=== PATIENT | male | born 1950 | race Caucasian/White ===

== ENCOUNTER → 2017-02-13 | Outpatient (CLI) | payer MEDICARE, BC ==
--- NOTE | 2017-02-13 21:02 | PN ---
DATE OF SERVICE: 02/13/2017 A 66-year-old gentleman who has been followed in the sleep center for treatment of obstructive sleep apnea/hypopnea syndrome. Patient continued to use his treatment with CPAP every night for the whole night. I checked his CPAP unit. Patient using it 30 out of 30 nights for more than 4 hours. Average usage is 8.2 hours. CPAP pressure is 10 cm of water. No snoring with the machine. [place] Sleepiness Scale is 8. MEDICATIONS: 1. Metoprolol. 2. Losartan. 3. Nifedipine and 4. Simvastatin. PHYSICAL EXAMINATION: GENERAL: A pleasant patient in no distress. VITAL SIGNS: BP 127/80, HR 74, RR 16. Height 5 feet 7 inches. Weight 204. BMI 31.9. Neck 16-3/4. Oxygen saturation at room air 95%. HEENT: PERRLA, EOMI. Evaluation of oropharynx showed tongue protrudes midline, extremely low position of soft palate. NECK: Supple. No JVD. Thyroid is not palpable. LUNGS: Clear to percussion and to auscultation. Good air exchange. No wheezing or rhonchi. HEART: S1, S2 regular. No murmurs, gallops, or rubs. ABDOMEN: Obese, soft and nontender. Bowel sounds are present. No organomegaly appreciated. EXTREMITIES: No clubbing or cyanosis. TAIL PULLER: Awake, alert, and oriented x3. Cranial nerves 2 to 7 intact. There is no fasciculation or atrophy noted. No focal deficits observed. IMPRESSION: 1. Obstructive sleep apnea-hypopnea syndrome. Patient demonstrated 100% compliance with treatment with a pressure at 10 cm of water. No snoring. No sleepiness. Benefitting from treatment. 2. Mild obesity; body mass index of 31.9. 3. Hypertension. 4. Hyperlipidemia. 5. Obesity. 6. Status post right knee surgery. PLAN: 1. Patient will continue to use his CPAP equipment every night for the whole night. 2. Losing weight. 3. Sleep hygiene with regular time in bed for at least 8 hours. 4. No driving if feeling any sleepiness. 5. Prescription for all necessary CPAP supplies, including mask, tube, filters with changing of supplies on a regular basis. Thank you very much for allowing me to participate in the management of your patient. Sincerely, Jayy Membreno MD, PhD, FAASM. Diplomat of [place] [employer], Sleep Medicine Board by [place] [place] Negative Assembler of [facility] [place]
== END | disposition home or self-care (01) ==
LOC: SLEEP 13:26
PROVIDERS: ATTEND Internal Medicine
DX: G47.33 Obstructive sleep apnea (adult) (pediatric) (principal); E66.9 Obesity, unspecified; Z68.31 Body mass index [BMI] 31.0-31.9, adult; I10 Essential (primary) hypertension; E78.5 Hyperlipidemia, unspecified; Z79.899 Other long term (current) drug therapy

== ENCOUNTER → 2018-04-16 | Outpatient (CLI) | payer MEDICARE ==
--- NOTE | 2018-04-16 11:58 | PN ---
PROGRESS NOTE DATE OF SERVICE: 04/16/2018 A 67-year-old gentleman who has been followed in the Sleep Center for treatment of obstructive sleep apnea-hypopnea syndrome. Patient continued to use his CPAP equipment every night without any significant problems. No snoring with the machine. [place] Sleepiness Scale is 5. I checked his CPAP unit. Usage is 30/30 nights for more than 4 hours. Average usage 8.4 hours. CPAP pressure is 10 cm of water. MEDICATIONS: Metoprolol, losartan, nifedipine, simvastatin. PHYSICAL EXAM: Patient in no distress. BP 147/83, HR 72, RR 16, height 5, 7, weight 208.4, BMI 32.5. Patient increased his weight on 4 pounds compared with the previous visit, temperature 97.2, oxygen saturation at room air 93%. OROPHARYNX: Extremely low position of soft palate. HEART: S1, S2. Regular. Systolic murmur. Neck Supple, no JVD. Thyroid is not palpable. LUNGS Clear to percussion and to auscultation. Good air exchange. No wheezing or rhonchi. ABDOMEN Soft and nontender. Bowel sounds are present. No organomegaly appreciated. EXTREMITIES No clubbing or cyanosis. SPANISH PROFESSOR Awake, alert, and oriented X3. Cranial nerves 2 to 7 intact. There is no fasciculation or atrophy. noted. No focal deficits observed. IMPRESSION: 1. Obstructive sleep apnea-hypopnea syndrome. Patient is using his CPAP equipment every night for the whole night, 100% compliance with treatment, benefitting from treatment. 2. Mild obesity. 3. Hypertension. 4. Hyperlipidemia. 5. Status post right knee surgery. PLAN: 1. Patient will continue to use CPAP equipment every night. 2. Prescription for all necessary CPAP supplies including mask, tube, filters. 3. Losing weight. 4. Sleep hygiene with regular time in bed for at least 8 hours. 5. No driving if any sleepiness. 6. Followup visit in 1 year or earlier if patient has any problems. Thank you very much for allowing me to participate in the management of your patient. Sincerely, Jayy Membreno MD, PhD, FAASM Diplomat of [place] [employer] [place] [employer] Rubber Trimmer of [facility] [place] MMODL / IJN: [id number] /
== END | disposition home or self-care (01) ==
LOC: SLEEP 10:27
PROVIDERS: ATTEND Internal Medicine
DX: G47.33 Obstructive sleep apnea (adult) (pediatric) (principal); I10 Essential (primary) hypertension; E78.5 Hyperlipidemia, unspecified; E66.9 Obesity, unspecified; Z68.32 Body mass index [BMI] 32.0-32.9, adult; Z99.89 Dependence on other enabling machines and devices; Z98.890 Other specified postprocedural states; Z79.899 Other long term (current) drug therapy

== ENCOUNTER → 2020-09-04 | Outpatient (CLI) | payer MEDICARE ==
[2020-09-04 11:37] LABS: ALT 29 U/L (4-49); AST 26 U/L (17-59); African American GFR (CKD) >90 (>60 ml/min/1.73 sqM); Albumin 4.5 g/dL (3.5-5.0); Alkaline Phosphatase 75 U/L (38-126); Anion Gap 6 mmol/L; Blood Urea Nitrogen 16 mg/dL (9-20); Calcium 9.5 mg/dL (8.4-10.2); Carbon Dioxide 31 mmol/L (22-30); Chloride 103 mmol/L (98-107); Cholesterol 128 mg/dL (<200); Glucose 97 mg/dL (74-99); HDL Cholesterol 54 mg/dL (40-60); LDL Cholesterol,Calculated 52 mg/dL (0-99); Non-African American GFR(CKD) >90 (>60 ml/min/1.73 sqM); Potassium 4.6 mmol/L (3.5-5.1); Sodium 140 mmol/L (137-145); Total Bilirubin 0.7 mg/dL (0.2-1.3); Total Protein 7.4 g/dL (6.3-8.2); Triglycerides 109 mg/dL (<150)
--- NOTE | 2020-09-04 13:53 | CT ---
EXAMINATION TYPE: CT angio chest DATE OF EXAM: 09/04/2020 COMPARISON: Radiograph 10/08/2018 HISTORY: 70-year-old male I71.2, Follow up thoracic aortic aneurysm TECHNIQUE: Contiguous axial scanning of the chest performed with IV Contrast, patient injected with 1 00 mL of Isovue 370. Coronal/sagittal MIP reconstructions performed. 3-D reconstructions generated on a dedicated independent workstation. CT DLP: 506.9 mGycm Automated exposure control for dose reduction was used. FINDINGS: Heart normal size without pericardial effusion. Mitral annular calcifications are noted. Aortic root aneurysmal at 4.1 cm. Ascending aorta aneurysmal at 4.5 cm. Mild atherosclerotic arch calcifications with conventional arch vessel branching anatomy. Upper descending thoracic aorta measures 2.9 cm. Mid descending thoracic aorta measures 2.9 cm. Ectatic aorta at the thoracoabdominal junction at 2.7 cm. No thoracic lymphadenopathy by CT size criteria. Trace bilateral gynecomastia. Some strandy atelectasis in the lower lungs. No consolidation or pleural effusion. Scattered hepatic hypodensities, largest measuring 3.7 cm, probable cysts. Additional cysts within both kidneys. Indeterminate lesion posterior midpole right kidney measuring 1 .9 cm has intermediate attenuation. Additional indeterminate lesion anterior upper pole left kidney m easures 3.4 cm. Solid mass or hemorrhagic cyst are both considerations. 2.9 cm nodule left adrenal gland. Bones: No osseous destructive process. Degenerative changes visualized cervical spine. IMPRESSION: 1. ANEURYSMAL AORTIC ROOT (4.1 CM) AND ASCENDING AORTA (4.5 CM). 2. BILATERAL RENAL LESIONS, LIKELY CYSTS. A 1.9 CM CORTICAL LESION ON THE RIGHT AND A 3.4 CM CORTICAL LESION ON THE LEFT ARE INDETERMINATE BETWEEN HEMORRHAGIC/PROTEINACEOUS CYSTS OR SOLID MASSES. 3-6 MO NTH FOLLOW-UP CONTRAST ENHANCED KIDNEY CT RECOMMENDED TO REASSESS. 3. A 2.9 CM LEFT ADRENAL NODULE, STATISTICALLY REPRESENTS A BENIGN ADRENAL ADENOMA SHOULD ALSO BE MAGUI SSESSED AT THAT TIME.
== END | disposition home or self-care (01) ==
LOC: RADCTMAIN 10:27
PROVIDERS: ATTEND Internal Medicine Interventional Cardiology
DX: I71.2 Thoracic aortic aneurysm, without rupture (principal); Q25.43 Congenital aneurysm of aorta; N28.9 Disorder of kidney and ureter, unspecified; D35.02 Benign neoplasm of left adrenal gland; E78.2 Mixed hyperlipidemia
CPT/HCPCS: 80061; 80053; 71275; 36415; Q9967

== ENCOUNTER → 2021-04-02 | Outpatient (CLI) | payer MEDICARE ==
[2021-04-02 15:57] LABS: Chol/HDL Ratio 2.56; LDL Cholesterol,Calculated 55.4 mg/dL (0.0-131.0); VLDL Calculation 19.6 mg/dL (5.00-40.00)
== END | disposition home or self-care (01) ==
LOC: LABWHC1 10:31
PROVIDERS: ATTEND Nurse Practitioner Adult Health
DX: E78.5 Hyperlipidemia, unspecified (principal)
CPT/HCPCS: 36415; 80061; 84450; 84460

== ENCOUNTER → 2021-08-27 | Outpatient (CLI) | payer MEDICARE | END | disposition home or self-care (01) | LOC: LABPAT 08:41 | PROVIDERS: ATTEND Orthopaedic Surgery | DX: M17.12 Unilateral primary osteoarthritis, left knee (principal); Z22.322 Carrier or suspected carrier of Methicillin resistant Staphylococcus aureus | CPT/HCPCS: 87070 ==

== ENCOUNTER → 2021-08-27 | Outpatient (CLI) | payer MEDICARE ==
[2021-08-27 17:59] LABS: ALT 28 U/L (10-49); AST 26 U/L (14-35); African American GFR (CKD) 102.3 (60.0-200.0); Albumin 4.4 g/dL (3.8-4.9); Albumin/Globulin Ratio 1.82 (1.60-3.17); Alkaline Phosphatase 81 U/L (41-126); BUN/Creat Ratio 17.41 Ratio (12.00-20.00); Blood Urea Nitrogen 14.8 mg/dL (9.0-27.0); Calcium 9.4 mg/dL (8.7-10.3); Carbon Dioxide 22.9 mmol/L (20.0-27.5); Chloride 104 mmol/L (96-109); Chol/HDL Ratio 2.55 Ratio; Globulin 2.4 g/dL (1.6-3.3); Glucose 107 mg/dL (70-110); LDL Cholesterol,Calculated 60.9 mg/dL (0.0-131.0); Non-African American GFR(CKD) 88.3 (60.0-200.0); Potassium 4.2 mmol/L (3.5-5.5); Sodium 141 mmol/L (135-145); Total Protein 6.8 g/dL (6.2-8.2)
== END | disposition home or self-care (01) ==
LOC: LABWHC1 08:45
PROVIDERS: ATTEND Internal Medicine Interventional Cardiology
DX: E78.2 Mixed hyperlipidemia (principal)
CPT/HCPCS: 36415; 80053; 80061

== ENCOUNTER 2021-10-01 10:14 | Day surgery (SDC) | payer MEDICARE ==
[2021-09-21 16:12] VITALS: BMI 32.8
--- NOTE | 2021-09-30 13:31 | HP ---
HISTORY AND PHYSICAL REASON FOR ADMISSION: Surgery 10/01/2021 HISTORY OF PRESENT ILLNESS: Julius Oseguera is a 71-year-old patient seen with symptomatic left knee osteoarthritis. We discussed options for treatment. He elected to proceed with left total knee arthroplasty. Consent was obtained. PAST MEDICAL HISTORY: Hypertension, hyperlipidemia. PAST SURGICAL HISTORY: Right total knee arthroplasty, tonsillectomy, right knee arthroscopy, no surgery. MEDICATIONS: Hyzaar, Procardia, simvastatin, Toprol, Tylenol. ALLERGIES: None. SOCIAL HISTORY: Denies tobacco use. PHYSICAL EVALUATION OF THE LEFT KNEE: Range of motion is -1/2 to 125. Tenderness medial joint line. Crepitus medial patellofemoral compartment with range of motion. Pain with patellofemoral compression. Ligaments stable. Hip rotation without pain. Distal neurovascular exam is intact. RADIOGRAPHS: Left knee radiographs reveal severe osteoarthritic changes. IMPRESSION: 1. Left knee osteoarthritis. 2. Hypertension. 3. Hyperlipidemia. PLAN: Left total knee arthroplasty. Surgery 10/01/2021. MMODL / IJN: [id number] /
[~2021-10-01 10:14] MED LIST: ACETAMINOPHEN TAB 500 MG TAB PO PRN; DEXAMETHASONE SOD PHOSPHATE 4 MG/ML 1 ML VIAL IV ONE; HYDROmorphone 0.5 MG/0.5 ML SYRINGE IVP PRN; MELOXICAM 7.5 MG TAB PO PRN; MIDAZOLAM 2 MG/2 ML VIAL IV PRN; ONDANSETRON 4 MG/2 ML VIAL IVP ONE; TRANEXAMIC ACID 1,000 MG in SODIUM CHLORIDE 0.9% 100 ML IVPB PRN
[2021-10-01] MEDS: LACTATED RINGERS 1,000 ML IV SCH (11:25)
[2021-10-01] MEDS ORDERED: ONDANSETRON 4 MG/2 ML VIAL IVP ONE (11:29)
[2021-10-01] MEDS ORDERED: DEXAMETHASONE SOD PHOSPHATE 4 MG/ML 1 ML VIAL IVP ONE (11:29)
[2021-10-01] MEDS ORDERED: MIDAZOLAM 2 MG/2 ML VIAL IVP ONE (11:59)
[2021-10-01] MEDS ORDERED: fentaNYL (PF) 50 MCG/ML 2 ML AMP IVP ONE (11:59)
[2021-10-01] MEDS ORDERED: SODIUM CHLORIDE 0.9% (PF) 10 ML VIAL ONE (12:38)
[2021-10-01] MEDS ORDERED: fentaNYL (PF) 50 MCG/ML 2 ML AMP ONE (12:38)
[2021-10-01] MEDS ORDERED: HYDROmorphone (PF) 1 MG/ML ONE (12:38)
[2021-10-01] MEDS ORDERED: PROPOFOL 10 MG/ML 20 ML VIAL IV ONE (12:38)
[2021-10-01] MEDS ORDERED: MIDAZOLAM 2 MG/2 ML VIAL ONE ×2 (12:38)
[2021-10-01] MEDS ORDERED: ROPIVACAINE 5 MG/ML 30 ML VIAL ONE (12:38)
[2021-10-01] MEDS ORDERED: SODIUM CHLORIDE 0.9% 100 ML BAG ONE (12:38)
[2021-10-01] MEDS ORDERED: TRANEXAMIC ACID 1,000 MG/10 ML VIAL ONE (12:38)
[2021-10-01] MEDS ORDERED: ceFAZolin 1,000 MG in SODIUM CHLORIDE 0.9% 1,000 ML IRRIGATION ONE (13:00)
[2021-10-01] MEDS ORDERED: LACTATED RINGERS 1,000 ML IV ONE ×3 (13:09→16:23)
--- NOTE | 2021-10-01 14:00 | P.ANPRN ---
Procedure Note - Anesthesia - Nerve Block Performed Left Adductor Canal Infusion Time Out Performed: Yes (1158) Date of Procedure: 10/01/21 Procedure Start Time: 11:59 Procedure Stop Time: 12:06 Location of Patient: PreOp Indication: Acute Post-Operative Pain, Requested by Surgeon Specifically requested for management of pain by DrSusana: Philipp Alvarez Sedation Type: Sedate with meaningful contact maintained Preparation: Sterile Prep Position: Supine Catheter Depth at Skin (cm): 7 Catheter: Indwelling Needle Types: Pajunk Needle Gauge: 18 Ultrasound used to visualize needle placement: Yes Ultrasound used to observe medication spread: Yes Injectate: 0.5% Ropivacaine (see comment for volume) (15cc + 10cc nacl pf) Blood Aspirated: No Pain Paresthesia on Injection Noted: No Resistance on Injection: Normal Image Stored and Saved: Yes Events: Uneventful and Well Tolerated
--- NOTE | 2021-10-01 14:01 | P.ANPRN ---
Procedure Note - Anesthesia - Nerve Block Performed Left iPack Single Time Out Performed: Yes (1158) Date of Procedure: 10/01/21 Procedure Start Time: 12:07 Procedure Stop Time: 12:11 Location of Patient: PreOp Indication: Acute Post-Operative Pain, Requested by Surgeon Specifically requested for management of pain by DrSusana: Philipp Alvarez Sedation Type: Sedate with meaningful contact maintained Preparation: Sterile Prep Position: Supine Catheter: None Needle Types: Pajunk Needle Gauge: 21 Ultrasound used to visualize needle placement: Yes Ultrasound used to observe medication spread: Yes Injectate: 0.5% Ropivacaine (see comment for volume) (15cc + 10cc nacl pf) Blood Aspirated: No Pain Paresthesia on Injection Noted: No Resistance on Injection: Normal Image Stored and Saved: Yes Events: Uneventful and Well Tolerated
[2021-10-01] MEDS ORDERED: HYDROmorphone 0.2 MG/1 ML SYRINGE IVP PRN (14:29)
[2021-10-01] MEDS ORDERED: HYDROcodone/APAP 5-325MG 1 EACH TAB PO PRN (14:29)
[2021-10-01] MEDS ORDERED: ONDANSETRON 4 MG/2 ML VIAL IVP PRN (14:29)
[2021-10-01] MEDS ORDERED: NALOXONE 0.4 MG/ML 1 ML VIAL IV PRN (14:29)
[2021-10-01] MEDS ORDERED: HYDROmorphone 0.5 MG/0.5 ML SYRINGE IVP PRN ×2 (14:29)
--- NOTE | 2021-10-01 14:29 | P.OP ---
Date of Procedure: 10/01/21 Preoperative Diagnosis: Left knee osteoarthritis Postoperative Diagnosis: Left knee osteoarthritis Procedure(s) Performed: Left total knee arthroplasty Implants: 1. Depuy attune size 7 left cruciate retaining cemented femur 2. Depuy attune size 7 fixed bearing cemented tibial baseplate 3. Depuy attune size 7 fixed bearing 7 mm polyethylene tibial insert 4. Depuy attune 38 mm all polyethylene cemented patella Anesthesia: regional (Adductor canal catheter, Ipack block), spinal Surgeon: Philipp Alvarez Instructional Support Specialist #1: Jake Marcelo Estimated Blood Loss (ml): 50 Pathology: other (Bone) Condition: stable Disposition: PACU Indications for Procedure: 71-year-old patient seen with symptomatic left knee osteoarthritis. After having treatment options discussed, he elected to proceed with total knee arthroplasty. Operative Findings: See description of procedure Description of Procedure: Patient was taken to the operative suite after having an adductor canal catheter placed by the department of anesthesia. Patient underwent a spinal anesthetic by the department of anesthesia. Patient was given preoperative IV intake antibiotics and TXA. A well-padded tourniquet was placed about the left lower extremity. The lower extremity was then prepped and draped in the normal sterile orthopedic fashion. The extremity was elevated, a tourniquet was insufflated to 300. A standard anterior incision was made sharply through skin. Dissection was taken down through the subcutaneous soft tissues down to the extensor mechanism. A medial arthrotomy was performed, patella was everted and knee was flexed. There was advanced osteoarthritis noted. I introduced my distal intramedullary femoral drill. I then introduced the distal femoral cutting jig. Zackary ENGEL secured the cutting jig with 2 pins. I held retractors in position while Zackary ENGEL performed the distal femoral resection through the guide area we now removed her distal femoral cutting guide. We now placed our 4-in-1 femoral cutting block and positioned and it was secured with 2 pins by Zackary ENGEL while I held the block in position. The distal femoral finishing was now completed. A proximal tibial cutting guide was positioned. I held the guide in the appropriate position with both hands well Zackary ENGEL inserted stabilizing pins into the guide. Proximal tibial cut was made. We now placed a trial femoral component into position, along with an appropriate size tibial tray and insert. We now took the knee through range of motion and had full extension good flexion and good overall soft tissue balance noted. The patella was everted and stabilized with 2 towel clips held by Zackary ENGEL while I performed a flush with patellar quad tendon utilizing a fresh sawblade. We templated the patella, appropriate drill holes were made. An appropriate trial patella was positioned, knee was taken through full range of motion with the patella tracking very nicely. The trial patella was removed. Drill holes were made through the femoral component. All trial components were removed after marking off the appropriate rotation of the tibia. Retractors were now positioned along the proximal tibia. An appropriate keel punch was made with the appropriate size tibial guide by myself on Zackary ENGEL assisted by holding retractors. At this point appropriate size implants were chosen and opened. The joint was irrigated copiously with pulse lavage mechanical irrigation. The posterior capsule was infiltrated with local analgesic. The wound was irrigated with pulse lavage mechanical irrigation. We mixed antibiotic methylmethacrylate. We placed the knee into flexion. We placed multiple retractors assisted by Zackary ENGEL to expose the proximal tibia. Once the methyl methacrylate was ready, the tibial component was cemented into place removing any excess methylmethacrylate form by both myself and Zackary ENGEL. The femoral component was cemented into place removing the removing any excess methylmethacrylate performed by both myself and Zackary ENGEL. We then inserted the appropriate size polyethylene tibial insert. We made sure that it was locked into position. We took the knee into full extension, and then back in a flexion making sure we had removed any excess methylmethacrylate. The patellar component was then cemented down and secured with clamp. Excess methylmethacrylate removed. We kept the knee in full extension, patellar clamp in position until methylmethacrylate had hardened. Once it had hardened the patellar clamp was removed. The knee was taken through full range of motion. The patella tracked nicely. There was good soft tissue balancing. The tourniquet was now released. Additional hemostasis was achieved via angelo ctrocautery. A second gram of TXA was given. The wound again was irrigated with pulse lavage mechanical irrigation. The superficial soft tissues were infiltrated local analgesic. The extensor mechanism was repaired with Ethibond. We checked the repair with range of motion and it was stable. The subcutaneous soft tissues were repaired with Vicryl in layers. The skin was approximated with pernio/Dermabond. Sterile dressings were applied followed by loose web roll and Héctor bandage. The patient was transferred to a bed, and taken to recovery in stable and satisfactory condition. Zackary ENGEL assisted with this complex procedure.
[2021-10-01] MEDS ORDERED: ROPIVACAINE 0.2%-NS ON-Q PUMP 2 MG/ML EACH MISCELLANE ONE (15:17)
--- NOTE | 2021-10-01 15:31 | XR ---
Left knee HISTORY: Status post left knee arthroplasty 2 views the left knee Patient is status post left knee arthroplasty. There is anatomic alignment. Soft tissue calcification may be vascular. Lucencies present within the soft tissues. IMPRESSION: Orthopedic follow-up.
[2021-10-01] MEDS ORDERED: SENNOSIDES-DOCUSATE SODIUM 1 EACH TAB PO SCH (21:00)
[2021-10-01] MEDS ORDERED: ATORVASTATIN 10 MG TAB PO SCH (21:45)
[2021-10-01] MEDS ORDERED: clonazePAM 0.5 MG TAB PO SCH (21:45)
[2021-10-01] MEDS: HYDROcodone/APAP 7.5-325MG 1 EACH TAB PO PRN (23:53)
[2021-10-02] MEDS: LACTATED RINGERS 1,000 ML IV SCH ×4 (02:27→11:12)
[2021-10-02 03:45] VITALS: RESP 18
[2021-10-02] MEDS: HYDROcodone/APAP 7.5-325MG 1 EACH TAB PO PRN ×2 (05:34→13:12)
--- NOTE | 2021-10-02 07:24 | P.PN ---
Progress Note - Text Progress Note Date: 10/02/21 (619) Anesthesiology Postop day 1 status post total knee arthroplasty with adductor canal catheter. Patient doing well. VAS 4 out of 10. Gross strength intact in lower extremity. Eyes fever. Denies alterations in sensorium. Catheter site intact. Heart regular rate Lungs nonlabored Abdomen nondistended Assessment: Postop day 1 status post total knee arthroplasty with adductor canal catheter Plan: All questions answered. Maintain catheter 2 more days with patient removal at home. Instructions were given at discharge.This note was dictated using [employer] software. Please be advised there is a potential for misspellings or errors in financial service rep.
[2021-10-02 07:49] VITALS: BP 153/78; PULSE 90; TEMP 98.8
[2021-10-02 09:00] LABS: Basophils # (A) 0.03 X 10*3/uL (0.00-0.10); Basophils % (A) 0.2 %; Eosinophils # (A) 0 X 10*3/uL (0.04-0.35); Eosinophils % (A) 0 %; HCT 42.2 % (39.6-50.0); HGB 13.4 g/dL (13.0-17.0); Lymphocytes # (A) 0.83 X 10*3/uL (0.90-5.00); Lymphocytes % (A) 6.9 %; MCH 28.5 pg (27.0-32.0); MCHC 31.8 g/dL (32.0-37.0); MCV 89.6 fL (80.0-97.0); Mean Platelet Volume 12.2 fL (9.5-12.2); Monocytes # (A) 1.25 X 10*3/uL (0.20-1.00); Monocytes % (A) 10.3 %; Neutrophils # (A) 9.91 X 10*3/uL (1.80-7.70); Platelet Count 168 X 10*3/uL (140-440); RBC 4.71 X 10*6/uL (4.40-5.60); RDW 12.7 % (11.5-14.5); WBC 12.09 X 10*3/uL (4.50-10.00)
[2021-10-02] MEDS ORDERED: ENOXAPARIN 30 MG/0.3 ML SYRINGE SQ SCH (09:00)
[2021-10-02] MEDS ORDERED: ASPIRIN 81 MG PO SCH (09:00)
[2021-10-02] MEDS ORDERED: CHOLECALCIFEROL 25 MCG (1000 IU) TABLET PO SCH (09:00)
[2021-10-02] MEDS ORDERED: METOPROLOL SUCCINATE (ER) 100 MG TAB.ER.24H PO SCH (09:00)
[2021-10-02] MEDS ORDERED: SPIRONOLACTONE 25 MG TAB PO SCH (09:00)
[2021-10-02] MEDS ORDERED: LOSARTAN-HCTZ 50-12.5 MG 1 EACH TAB PO SCH (09:00)
--- NOTE | 2021-10-02 11:49 | P.PN ---
Subjective Progress Note Date: 10/02/21 Principal diagnosis: Status post left total knee arthroplasty Patient evaluated today at bedside, he is resting in his hospital bed. Patient did very well with physical therapy. His pain is well-controlled with current medication. Currently denying any headaches, lightheadedness, chest pain or shortness of breath. Objective - Vital Signs Vital signs: Vital Signs Temp 98.8 F 10/02/21 07:48 Pulse 90 10/02/21 07:48 Resp 18 10/02/21 08:00 BP 153/78 10/02/21 07:48 Pulse Ox 97 10/02/21 07:48 Intake & Output 10/01/21 10/02/21 10/02/21 18:59 06:59 18:59 Intake Total 2100 Output Total 50 Balance 2050 Weight 98.7 kg Intake: IV 2100 Output: Estimated Blood Loss 50 Other: Voiding Method Toilet Toilet Urinal Urinal # Voids 2 - Exam Left lower extremity: Incision is clean, dry, and intact. The foam dressing is in good condition. There is minimal soft tissue swelling and ecchymosis surrounding the medial and lateral aspects of the incision. Calf is soft, no tenderness with palpation. Plantar flexion, dorsiflexion, EHL, FHL are intact. Sensory exam to light touch throughout the extremity is intact, dorsal pedis pulses 2+. - Labs CBC & Chem 7: 10/02/21 05:24 Labs: Abnormal Lab Results - Last 24 Hours (Table) 10/02/21 Range/Units 05:24 WBC 12.09 H (4.50-10.00) X 10*3/uL MCHC 31.8 L (32.0-37.0) g/dL Immature Gran # 0.07 H (0.00-0.04) X 10*3/uL Neutrophils # 9.91 H (1.80-7.70) X 10*3/uL Lymphocytes # 0.83 L (0.90-5.00) X 10*3/uL Monocytes # 1.25 H (0.20-1.00) X 10*3/uL Eosinophils # 0 L (0.04-0.35) X 10*3/uL Assessment and Plan Assessment: Postoperative day #1 status post left total knee arthroplasty Plan: Pain control, plan for discharge home on oral medication DVT prophylaxis, aspirin 81 mg twice a day Wound care instructions were discussed, this including icing and elevating along with removal of the pain catheter when empty Medical recommendations Home physical therapy and nursing of discharge Plan for discharge home today Time with Patient: Less than 30
--- NOTE | 2021-10-02 11:53 | P.DS ---
Providers Date of admission: 10/01/2021 Expected date of discharge: 10/02/21 Attending physician: Philipp Alvarez Consults: 10/01/21 14:29 Consult Physician Routine Consulting Provider: Jesus Lynch Reason/Comments: Medical management Do you want consulting provider notified?: Yes Primary care physician: [facility] Hospital Course: Date of admission: 10/01/2021 Date of discharge: 10/02/2021 Admission diagnosis: Status post left total knee arthroplasty Discharge diagnosis: Same Attending physician: Dr. Alvarez Surgical procedures: Left total knee arthroplasty Brief history: Patient is a 71-year-old male with a history of progressive primary left knee osteoarthritis. At this point patient has failed conservative treatment measures and has opted to proceed with a elective left total knee arthroplasty. Hospital course: Details of patient's surgery can be found in operative report. Patient tolerated the procedure well and was subsequently transported to orthopedic floor. Patient's orthopeidc and medical care was provided daily. Patient had daily laboratory tests performed for evaluation of overall blood counts. Patient had daily physical therapy to include strengthening range of motion as well as education with walker ambulation. Patient was treated with Lovenox for their postoperative DVT prophylaxis during their inpatient stay. Patient was noted to have a relatively uneventful postoperative course. Patient reported satisfactory pain control with oral pain medications by postoperative day 0. Patient showed satisfactory progress with physical therapy. Patient moved steadily through the program and had no difficulty meeting the goals by postoperative day 1. Given patient's otherwise satisfactory course and having met physical therapy goals, plan is to discharge patient home on postoperative day 1. Discharge condition/disposition: Patient will be discharged home in stable condition. Discharge medications: Instructions are given on resumption of patient's normal daily medications per primary care recommendation, in addition patient will be prescribed [place] 7.5 mg/325 mg, Colace 100 mg. Discharge instructions: 1. Wound care and infection precautions, keep incision dry and covered while showering, no lotions, creams, moisturizers. No soaking, tubs, pools, hottubs. Do not scrub over the incision. 2. Weight-bear as tolerated with walker / cane until follow-up. 3. Ice and elevate when necessary. Do not exceed 20 minutes per hour with ice pack. 4. Utilize compression sleeve until seen at first follow up appointment. 5. Visiting nursing care. 6. Home physical therapy including home CPM. 7. Pain meds and anticoagulants per prescription. 8. Pain medication has potential to cause constipation. Increase oral fluid and fiber intake. Contact primary care provider if you have not had a bowel movement within 48 hours after discharge 9. No anti-inflammatory medication until discussed at first post operative visit, this including Motrin, Aleve, Mobic, Diclofenac. 10. Follow up in office at 2 weeks postop with Zackary Marcelo PA-C/Kong Stewart 11. Follow up with your primary care doctor 7-10 days after discharge. 12. Contact [facility] with any questions, . Procedures: Left total knee arthroplasty Patient Condition at Discharge: Good Plan - Discharge Summary Discharge Rx Participant: No New Discharge Prescriptions: New Aspirin [Adult Low Dose Aspirin EC] 81 mg PO BID #60 tab Docusate [Colace] 100 mg PO DAILY #30 capsule HYDROcodone/APAP 7.5-325MG [[place] 7.5] 1 - 2 each PO Q6HR PRN #42 tab PRN Reason: Pain Discontinued Aspirin 81 mg PO DAILY No Action clonazePAM 0.5 mg PO HS Simvastatin 20 mg PO HS Spironolactone 25 mg PO DAILY NIFEdipine [NIFEdipine ER (Osmotic)] 60 mg PO QAM Metoprolol Succinate (ER) [Toprol Xl] 100 mg PO QAM Losartan/Hydrochlorothiazide [Losartan-Hctz 100-25 mg Tab] 1 tab PO QAM Cholecalciferol [Vitamin D3 (25 Mcg = 1000 Iu)] 50 mcg PO DAILY Discharge Medication List Cholecalciferol [Vitamin D3 (25 Mcg = 1000 Iu)] 50 mcg PO DAILY 09/21/21 [History] Losartan/Hydrochlorothiazide [Losartan-Hctz 100-25 mg Tab] 1 tab PO QAM 09/21/21 [History] Metoprolol Succinate (ER) [Toprol Xl] 100 mg PO QAM 09/21/21 [History] NIFEdipine [NIFEdipine ER (Osmotic)] 60 mg PO QAM 09/21/21 [History] Simvastatin 20 mg PO HS 09/21/21 [History] Spironolactone 25 mg PO DAILY 09/21/21 [History] clonazePAM 0.5 mg PO HS 09/21/21 [History] Aspirin [Adult Low Dose Aspirin EC] 81 mg PO BID #60 tab 10/02/21 [Rx] Docusate [Colace] 100 mg PO DAILY #30 capsule 10/02/21 [Rx] HYDROcodone/APAP 7.5-325MG [[place] 7.5] 1 - 2 each PO Q6HR PRN #42 tab 10/02/21 [Rx] Follow up Appointment(s)/Referral(s): [facility], [NON-STAFF] - ([facility] will call you to schedule your in home nursing and physical therapy visits. ) Jake Marcelo PAC [PHYSICIAN RESPIRATORY THERAPY DIRECTOR] - 2 Weeks Activity/Diet/Wound Care/Special Instructions: Orthopedic Discharge Instructions: 1. Wound care and infection precautions, keep incision dry and covered while showering, no lotions, creams, moisturizers. No soaking, pools, hot tubs. Do not scrub over incision. 2. Weight-bear as tolerated with walker / cane until follow-up. 3. Ice and elevate when necessary. Do not exceed 20 minutes per hour with ice pack. 4. Utilize compression sleeve until seen at first follow up appointment. 5. Pain meds and anticoagulants per prescription. 6. Pain medication has potential to cause constipation. Increase oral fluid and fiber intake. Contact primary care provider if you have not had a bowel movement within 48 hours after discharge. 7. No anti-inflammatory medication until discussed at first post operative visit, this including Motrin, Aleve, Mobic, Diclofenac. 8. Follow up in office at 2 weeks postop with Zackary Marcelo PA-C/Kong Cheung PA-C 9. Follow up with your primary care doctor 7-10 days after discharge. 10. Contact [facility] with any questions, . Discharge Disposition: HOME WITH HOME HEALTH SERVICES
[2021-10-02] MEDS ORDERED: MULTIVITAMINS, THERA 1 EACH TAB PO SCH (12:00)
--- NOTE | 2021-10-02 14:15 | CONS ---
CONSULTATION HISTORY OF PRESENT ILLNESS: He is status post left knee replacement for medical management consult. He is having no chest pain. No shortness of breath. No lightheadedness, syncope. MEDICATIONS: Home medicines include: Simvastatin 20 mg daily, spironolactone 25 mg daily, Klonopin 0.5 at night, nifedipine ER 60 mg daily, metoprolol succinate 100 mg daily, losartan hydrochlorothiazide 100/25 daily. He takes [place] 7.5, 1-2 every 6 hours. Colace 100 mg daily, aspirin 81 daily. PHYSICAL EXAMINATION: Blood pressure is 150s to 160s over 78 to 95, O2 97 on room air, pulse 85 to 90, respiratory 18-20. Cardiovascular S1, S2. Lungs clear. GI soft. Hematology: Negative Homans. ASSESSMENT: 1. Status post knee replacement. 2. Hypertension. 3. Mild leukocytosis secondary to postop. 4. Hypertension acceleration. Restart home medicines for blood pressure. Monitor him. He is having no chest pain or shortness of breath. He appears to be stable postop at this time. MMODL / IJN: [id number] /
== END 2021-10-02 14:13 | disposition home health service (06) ==
LOC: OR 10:14 → 4SSUR 14:50 → OR 10-02 14:13
PROVIDERS: ATTEND Orthopaedic Surgery
DX: M17.12 Unilateral primary osteoarthritis, left knee (principal); I10 Essential (primary) hypertension; E78.5 Hyperlipidemia, unspecified; D72.829 Elevated white blood cell count, unspecified; Z20.822 Contact with and (suspected) exposure to COVID-19
CPT/HCPCS: 27447; 97161; 64999; 64448; 76942; 85025; 88300; 87635; 73560; C1776; C1713 ×2; J2250; J1100; J0690 ×3; J2405; J3010; J1650; J1170; J2795

== ENCOUNTER → 2022-03-19 | Outpatient (CLI) | payer MEDICARE ==
[2022-03-19 14:31] LABS: ALT 22 U/L (10-49); AST 20 U/L (14-35); African American GFR (CKD) 97.3 (60.0-200.0); Albumin 4.3 g/dL (3.8-4.9); Albumin/Globulin Ratio 1.54 (1.60-3.17); Alkaline Phosphatase 83 U/L (41-126); BUN/Creat Ratio 19.13 Ratio (12.00-20.00); Blood Urea Nitrogen 17.6 mg/dL (9.0-27.0); Calcium 9.3 mg/dL (8.7-10.3); Carbon Dioxide 22.8 mmol/L (20.0-27.5); Chloride 104 mmol/L (96-109); Chol/HDL Ratio 2.66 Ratio; Globulin 2.8 g/dL (1.6-3.3); Glucose 98 mg/dL (70-110); LDL Cholesterol,Calculated 63.4 mg/dL (0.0-131.0); Potassium 4.3 mmol/L (3.5-5.5); Sodium 139 mmol/L (135-145); Total Protein 7.1 g/dL (6.2-8.2); VLDL Calculation 18.94 mg/dL (5.00-40.00)
== END | disposition home or self-care (01) ==
LOC: LABWHC1 09:07
PROVIDERS: ATTEND Internal Medicine Interventional Cardiology
DX: E78.2 Mixed hyperlipidemia (principal)
CPT/HCPCS: 36415; 80053; 80061

== ENCOUNTER → 2022-07-23 | Outpatient (CLI) | payer MEDICARE ==
[2022-07-23 12:48] LABS: African American GFR (CKD) >90 (>60 ml/min/1.73 sqM); Blood Urea Nitrogen 18 mg/dL (9-20); Non-African American GFR(CKD) >90 (>60 ml/min/1.73 sqM)
--- NOTE | 2022-07-23 14:14 | CT ---
EXAMINATION TYPE: CT angio chest DATE OF EXAM: 07/23/2022 1:54 PM COMPARISON: 09/04/2020 HISTORY: Follow up for thoracic aortic aneurysm. CT DLP: 1204.9 mGycm Automated exposure control for dose reduction was used. CONTRAST: CTA scan of the thorax is performed without and with IV Contrast, patient injected with 100ml mL of I sovue 370, pulmonary embolism protocol. . FINDINGS: Heart normal size without pericardial effusion. Mitral annular calcifications are noted. Coronary art luis calcification noted. 1 to 2 mm multiple subpleural nodules are stable and likely benign. Aortic root aneurysmal at 4.1 cm. Ascending aorta aneurysmal at 4.5 cm. Mild atherosclerotic arch rose cifications with conventional arch vessel branching anatomy. Upper descending thoracic aorta measures 2.9 cm. Mid descending thoracic aorta measures 2.9 cm. Ectatic aorta at the thoracoabdominal junctio n at 2.7 cm. No thoracic lymphadenopathy by CT size criteria. Trace bilateral gynecomastia. Some strandy atelectasis in the lower lungs. No consolidation or pleural effusion. Scattered hepatic hypodensities, largest measuring 3.7 cm, probable cysts. Additional cysts within alana th kidneys. Indeterminate lesion posterior midpole right kidney measuring 1.9 cm has intermediate att enuation. Additional indeterminate lesion anterior upper pole left kidney measures 3.4 cm. Solid mass or hemorrhagic cyst are both considerations. 2.9 cm nodule left adrenal gland. Bones: No osseous destructive process. Degenerative changes visualized cervical spine. IMPRESSION: 1. ANEURYSMAL AORTIC ROOT (4.1 CM) AND ASCENDING AORTA (4.5 CM) WHICH IS STABLE. 2. BILATERAL RENAL LESIONS, LIKELY CYSTS. A 1.9 CM CORTICAL LESION ON THE RIGHT AND A 3.4 CM CORTICAL LESION ON THE LEFT ARE INDETERMINATE BETWEEN HEMORRHAGIC/PROTEINACEOUS CYSTS OR SOLID MASSES. RECOMM END FOLLOW-UP MRI. 3. A 2.9 CM LEFT ADRENAL NODULE, STATISTICALLY REPRESENTS A BENIGN ADRENAL ADENOMA IS STABLE.
== END | disposition home or self-care (01) ==
LOC: RADCTMAIN 12:06
PROVIDERS: ATTEND Internal Medicine Interventional Cardiology
DX: I71.21 Aneurysm of the ascending aorta, without rupture (principal); N28.9 Disorder of kidney and ureter, unspecified; D35.02 Benign neoplasm of left adrenal gland
CPT/HCPCS: 82565; 84520; 71275; 36415; Q9967

== ENCOUNTER → 2022-09-05 | Outpatient (CLI) | payer MEDICARE ==
[2022-09-05 18:56] LABS: Basophils % (A) 1.2 %; Eosinophils # (A) 0.24 X 10*3/uL (0.04-0.35); Eosinophils % (A) 2.9 %; HCT 46.9 % (39.6-50.0); HGB 15.3 g/dL (13.0-17.0); Immature Grans, Automated 0.5 %; Lymphocytes # (A) 1.44 X 10*3/uL (0.90-5.00); Lymphocytes % (A) 17.4 %; MCH 28.7 pg (27.0-32.0); MCHC 32.6 g/dL (32.0-37.0); MCV 87.8 fL (80.0-97.0); Mean Platelet Volume 12.2 fL (9.5-12.2); Monocytes # (A) 0.72 X 10*3/uL (0.20-1.00); Monocytes % (A) 8.7 %; NRBC Per 100 WBC 0 /100 WBCS (0.0-0.0); Neutrophils # (A) 5.72 X 10*3/uL (1.80-7.70); Neutrophils % (A) 69.3 %; Platelet Count 199 X 10*3/uL (140-440); RBC 5.34 X 10*6/uL (4.40-5.60); RDW 13.2 % (11.5-14.5); WBC 8.26 X 10*3/uL (4.50-10.00)
[2022-09-05 19:20] LABS: ALT 28 U/L (10-49); AST 25 U/L (14-35); African American GFR (CKD) 99.2 (60.0-200.0); Albumin 4.5 g/dL (3.8-4.9); Albumin/Globulin Ratio 1.88 (1.60-3.17); Alkaline Phosphatase 87 U/L (41-126); Blood Urea Nitrogen 14.4 mg/dL (9.0-27.0); Calcium 9.6 mg/dL (8.7-10.3); Carbon Dioxide 22.4 mmol/L (20.0-27.5); Chloride 103 mmol/L (96-109); Globulin 2.4 g/dL (1.6-3.3); Glucose 93 mg/dL (70-110); Non-African American GFR(CKD) 85.6 (60.0-200.0); Potassium 4.4 mmol/L (3.5-5.5); Rheumatoid Factor, Qnt <10 IU/mL (0-15); Sodium 140 mmol/L (135-145); Total Protein 6.9 g/dL (6.2-8.2)
[2022-09-05 19:39] LABS: Erythrocyte Sedimentation Rate 35 mm/Hr (0-20)
[2022-09-05 20:29] LABS: Thyroid Peroxidase Antibodies <9.0 U/mL (0.0-33.0)
[2022-09-06 08:30] LABS: Cat Epith & Dander IgE <0.10 kU/L; Dog Dander IgE <0.10 kU/L
== END | disposition home or self-care (01) ==
LOC: LABWHC1 10:08
PROVIDERS: ATTEND Allergy & Immunology
DX: J31.0 Chronic rhinitis (principal); L29.8 Other pruritus; L50.8 Other urticaria; R06.02 Shortness of breath; R05.3 Chronic cough
CPT/HCPCS: 36415; 80053; 82785; 83520; 84165; 84439; 84443; 85025; 85652; 86003; 86038; 86140; 86162; 86332; 86334; 86376; 86431; 86592; 86800; 87338

== ENCOUNTER → 2023-03-31 | Outpatient (CLI) | payer MEDICARE ==
[2023-03-31 16:06] LABS: BUN/Creat Ratio 18.33 Ratio (12.00-20.00); Blood Urea Nitrogen 16.5 mg/dL (9.0-27.0); Chloride 103 mmol/L (96-109); Chol/HDL Ratio 2.41 Ratio; Glucose 108 mg/dL (70-110); LDL Cholesterol,Calculated 50.9 mg/dL (0.0-131.0); Potassium 3.8 mmol/L (3.5-5.5); Sodium 142 mmol/L (135-145); VLDL Calculation 14.66 mg/dL (5.00-40.00)
[2023-03-31 16:07] LABS: ALT 26 U/L (10-49); AST 21 U/L (14-35); Albumin 4.3 d/dL (3.8-4.9); Albumin/Globulin Ratio 2.05 Ratio (1.60-3.17); Alkaline Phosphatase 85 U/L (41-126); Calcium 9.3 mg/dL (8.7-10.3); Globulin 2.1 d/dL (1.6-3.3); Total Bilirubin 0.3 mg/dL (0.3-1.2); Total Protein 6.4 d/dL (6.2-8.2)
== END | disposition home or self-care (01) ==
LOC: LABWHC1 08:32
PROVIDERS: ATTEND Internal Medicine Interventional Cardiology
DX: E78.2 Mixed hyperlipidemia (principal)
CPT/HCPCS: 36415; 80053; 80061